=== PATIENT | female | born 1955 | race Caucasian/White ===

== ENCOUNTER 2025-03-29 13:27 | Observation (INO) ==
--- NOTE | 2025-03-29 13:58 | Emergency Department Note ---
Impression & Plan UTI (urinary tract infection) ED Provider Note CHIEF COMPLAINT: Urinary symptoms HISTORY OF PRESENTING ILLNESS: The patient is a pleasant 69-year-old female who arrives to the emergency department with her daughter for evaluation of dysuria. Patient states she is currently being treated for a urinary tract infection that she believes she has had since mid January. She states she was seen at [facility], and provided Augmentin. She reports she was contacted by them today, and informed that she would require further treatment due to the culture results. Patient states some generalized weakness. She reports suprapubic pain, and pressure. She states no upper abdominal pain, nausea, vomiting, fever, chest pain, or shortness of breath. She does report some bilateral lower extremity weakness, that has worsened over the last month. The patient reports she did recently bury her , and that she has struggled dealing with that. REVIEW OF SYSTEMS: See HPI for pertinent positives and pertinent negatives. ALLERGIES: See below MEDICATIONS: See below PAST MEDICAL HISTORY: See below PHYSICAL EXAM: VITALS: Vitals are noted on the nurse's note and reviewed by myself. Vital signs stable. GENERAL: 69-year-old female, in no acute distress, nondiaphoretic, well- developed well-nourished. SKIN: The skin was without rashes, erythema, edema, or bruising. HEAD: Normocephalic atraumatic. EARS: External auditory canals clear, tympanic membranes pearly pineda without erythema or effusion bilaterally. EYES: Pupils equal round and reactive to light and accommodation. Conjunctivae without injection, sclerae without icterus. Extraocular movements intact. MOUTH: Mucous membranes moist. No tonsillar hypertrophy. Pharynx without erythema or exudate. Uvula midline. Airway patent. Tongue does not deviate. NECK: Supple without nuchal rigidity. No lymphadenopathy. Cervical spine is nontender. No JVD. HEART: Regular rate and rhythm without murmurs gallops or rubs. LUNGS: Clear to auscultation bilaterally without wheezes, rales or rhonchi. No retractions or accessory muscle use. ABDOMEN: Positive bowel sounds x 4. Soft, tenderness to palpation suprapubic region, no rebound tenderness or guarding. MUSCULOSKELETAL: No muscle atrophy, erythema, or edema noted. Normal gait. Strength 5/5 throughout. NEURO: Patient was alert and oriented to person place and time. No focal neurological deficits. DIFFERENTIAL DIAGNOSIS: Infection, dehydration, metabolic abnormality, hypo/hyperglycemia, electrolyte disturbance, anemia, hypoxia, cardiac sources, intracerebral event, toxicologic, neurologic, as well as other pathologies. ED COURSE AND MEDICAL DECISION MAKING: HISTORY FROM INDEPENDENT HISTORIAN: Daughter at bedside serving as secondary historian. MEDICATIONS GIVEN: 1 L NSS bolus, 1gm IV ertapenem. MONITOR: Continuous cardiac nurse specialist: Order was placed for continuous cardiac nurse specialist. Patient was placed on the cardiac nurse specialist and continuous pulse ox. Patient was noted to be in Atrial fibrillation at an initial rate of 60 bpm per my interpretation. EKG: EKG was interpreted by myself as atrial fibrillation at a rate of 76 bpm, previous for comparison from August 2022 shows no significant change. INTERPRETATION OF LABS: I interpreted the labs with full lab results as below in the lab section of this note. Pertinent lab results discussed in the MDM section below. INTERPRETATION OF IMAGING: Imaging studies were interpreted by myself and read by radiology as per the imaging section of this note. EXTERNAL RECORDS REVIEWED: Medical records from [facility]. [facility] SUMMARY: The patient is a pleasant, 69-year-old female who arrives to the emergency department for evaluation of the above-stated complaint. Saline lock was established, sepsis workup was obtained. Lab work shows no leukocytosis, no anemia. CMP shows elevated glucose at 145, however otherwise unremarkable. Troponin negative, procalcitonin negative, lactate negative. Magnesium within normal limits. Urinalysis shows trace leukocyte esterase, with 1+ bacteria and 11-20 WBCs. I was able to evaluate the urine culture results from [facility], which showed resistance to all oral antibiotics. There was sensitivity noted to meropenem, and ertapenem. Patient was provided 1 g IV ertapenem, as well as 1 L IV fluids. Patient will be admitted for IV antibiotic treatment, to the [facility] hospitalist group. Please refer to their documentation for further patient workup and care. DIAGNOSIS: UTI, resistant ESBL The patient's case was discussed with Dr. Palencia, who agreed with my evaluation and treatment plan. The chart was completed utilizing [employer] voice recognition software. Grammatical errors, random word insertions, pronoun errors, and incomplete sentences are an occasional consequence of this system due to software limitations, ambient noise, and hardware issues. Any formal questions or concerns about the content, text, or information contained within the body of this dictation should be directly addressed to the provider for clarification. Attending Attestation: I Stephan Palencia MD I have reviewed the advanced practitioner's documentation and agree with the plan of care. I accept the responsibility for the associated risk of managing the patient. I performed a substantive portion of the visit including involvement in all aspects of medical decision making. Past Med/Surg History Problem List (Updated 03/29/25 @ 23:31 by SARAH Gonzalez) UTI (urinary tract infection) (Acute) Chronic pain Complicated UTI (urinary tract infection) Atrial fibrillation HTN (hypertension) Rheumatoid arthritis Medical History Obesity Hypothyroidism Psoriasis HLD (hyperlipidemia) Acute diverticulitis Surgical History History of surgery on right wrist History of surgery on left wrist H/O hernia repair S/P cholecystectomy S/P appendectomy H/O colectomy Family History Other Diabetes Heart disease Social History Smoking Status: Never smoker Hx Alcohol Use: No Hx Substance Use: No Preferred Language: Andorran Communication Ability: Effective Trimmer Loader Required: No Beliefs That Will Affect Care: None Current Living Situation: Alone Current Living Situation Comment: lives at home alone Feels Safe at Home: Yes Safety Concerns: Feels Safe At This Time Assistive Devices: Glasses Allergies Allergies Allergy/AdvReac Type Severity Reaction Status Date / Time Iodinated Contrast Media Allergy Severe Difficulty Verified 03/29/25 15:09 Breathing Home Meds Home Medications Medication Instructions Recorded Confirmed apixaban 5 mg tablet (Eliquis) 5 mg PO BID 06/11/22 03/29/25 glipizide 2.5 mg tablet, extended 2.5 mg PO QAM 06/11/22 03/29/25 release 24 hr levothyroxine 125 mcg tablet 125 mcg PO DAILYBB 06/11/22 03/29/25 (Synthroid) lisinopril 10 mg tablet 10 mg PO QAM 06/11/22 03/29/25 morphine 30 mg tablet,extended 30 mg PO TID PRN Severe Pain 06/11/22 03/29/25 release (Scale Score 7-10) oxycodone 10 mg tablet 10 mg PO Q4 PRN mod pain 06/11/22 03/29/25 simvastatin 20 mg tablet 20 mg PO QAM 06/11/22 03/29/25 trazodone 50 mg tablet 100 mg PO HS PRN Sleep 06/11/22 03/29/25 cholecalciferol (vitamin D3) 1,250 50,000 unit PO WK 03/29/25 03/29/25 mcg (50,000 unit) capsule gabapentin 100 mg capsule 100 mg PO DAILY PRN Pain 03/29/25 03/29/25 gabapentin 100 mg capsule 200 mg PO HS 03/29/25 03/29/25 metoprolol succinate 100 mg 100 mg PO BID 03/29/25 03/29/25 tablet,extended release 24 hr sertraline 50 mg tablet 50 mg PO QAM 03/29/25 03/29/25 Previous Rx's Medication Instructions Recorded ondansetron 4 mg disintegrating 4 mg PO Q8H PRN nausea and 06/11/22 tablet vomiting #30 tabs Results & Data (ED) Vital Signs Vital Signs - 24 hr 03/29/25 13:37 03/29/25 14:24 03/29/25 15:07 Temperature 36.5 C Temperature Source Oral Pulse Rate 65 62 Pulse Rate [Apical] 63 Respiratory Rate 20 22 23 Respiratory Effort / Characteristics Non-Labored Spontaneous Non-Labored Spontaneous Respiratory Depth Normal Normal Respiratory Pattern Regular Blood Pressure 130/95 Blood Pressure [Left Arm] 166/108 H Blood Pressure Mean 106 Blood Pressure Mean [Left Arm] 127 Pulse Oximetry 92 94 94 Oxygen Delivery Method Room Air Room Air Room Air Sepsis Recent Fever Within 48 Hours No Sepsis New/Unexplained Change in Mental Status No Sepsis Action Taken by Nursing No Action Required 03/29/25 15:44 03/29/25 16:20 Temperature Temperature Source Pulse Rate 61 Pulse Rate [Apical] 68 Respiratory Rate 22 Respiratory Effort / Characteristics Spontaneous Respiratory Depth Respiratory Pattern Blood Pressure Blood Pressure [Left Arm] 164/104 H Blood Pressure Mean Blood Pressure Mean [Left Arm] 124 Pulse Oximetry 94 Oxygen Delivery Method Room Air Sepsis Recent Fever Within 48 Hours Sepsis New/Unexplained Change in Mental Status Sepsis Action Taken by Intermediate Medications Current Medication List: was personally reviewed by me Laboratory Data Attestation: I reviewed the patient's lab results. 03/30/25 10:27 03/30/25 10:27 Lab Results 03/29/25 03/29/25 Range/Units 14:07 14:22 WBC Cancelled 9.82 RBC Cancelled 4.59 Hgb Cancelled 13.5 Hct Cancelled 41.2 MCV Cancelled 89.8 MCH Cancelled 29.4 MCHC Cancelled 32.8 RDW Std Deviation Cancelled 42.8 RDW Coeff of Skye Cancelled 13.2 Plt Count Cancelled 348 MPV Cancelled 10.3 Immature Gran % (Auto) Cancelled 0.3 Neut % (Auto) Cancelled 82.3 Lymph % (Auto) Cancelled 12.3 Price % (Auto) Cancelled 3.0 Eos % (Auto) Cancelled 1.7 Baso % (Auto) Cancelled 0.4 Neut # (Auto) Cancelled 8.08 H Lymph # (Auto) Cancelled 1.21 Price # (Auto) Cancelled 0.29 Eos # (Auto) Cancelled 0.17 Baso # (Auto) Cancelled 0.04 Immature Gran # (Auto) Cancelled 0.03 Absolute Nucleated RBC Cancelled Nucleated RBC % (auto) Cancelled Neutrophils % (Manual) Cancelled Band Neutrophils % Cancelled Lymphocytes % (Manual) Cancelled Prolymphocyte % Cancelled Reactive Lymphs % (Man) Cancelled Monocytes % (Manual) Cancelled Eosinophils % (Manual) Cancelled Basophils % (Manual) Cancelled Metamyelocytes % (Man) Cancelled Myelocytes % (Man) Cancelled Promyelocytes % (Man) Cancelled Blast Cells % (Manual) Cancelled Plasma Cell % (Manual) Cancelled Other Cells % Cancelled Nucleated RBC % Cancelled Neutrophils # (Manual) Cancelled Band Neutrophils # Cancelled Total Absolute Neuts Cancelled Lymphocytes # (Manual) Cancelled Prolymphocyte # Cancelled Reactive Lymphs # Cancelled Total Abs Lymphocytes Cancelled Monocytes # (Manual) Cancelled Eosinophils # (Manual) Cancelled Basophils # (Manual) Cancelled Metamyelocytes # (Man) Cancelled Myelocytes # (Manual) Cancelled Promyelocytes # (Man) Cancelled Blast Cells # (Man) Cancelled Plasma Cell # (Manual) Cancelled Other Cells # Cancelled Nucleated RBCs # (Man) Cancelled Hypersegmented Neuts Cancelled Hyposegmented Neuts Cancelled Hypogranular Neuts Cancelled Large Granular Lymphs Cancelled # Lrg Granular Lymphs Cancelled Hairy Cells Cancelled Smudge Cells Cancelled Toxic Granulation Cancelled Toxic Vacuolation Cancelled Dohle Bodies Cancelled Ashkan Rods Cancelled Platelet Estimate Cancelled Hypogranular Platelets Cancelled Giant Platelets Cancelled Platelet Satelliting Cancelled RBC Morphology Cancelled Polychromasia Cancelled Hypochromasia Cancelled Poikilocytosis Cancelled Basophilic Stippling Cancelled Anisocytosis Cancelled Microcytosis Cancelled Macrocytosis Cancelled Spherocytes Cancelled Pappenheimer Bodies Cancelled Sickle Cells Cancelled Target Cells Cancelled Tear Drop Cells Cancelled Ovalocytes Cancelled Stomatocytes Cancelled [place] Bodies Cancelled Echinocytes Cancelled Acanthocytes (Spur) Cancelled Rouleaux Cancelled RBC Agglutinates Cancelled Schistocytes Cancelled Sezary Cell Cancelled Sodium 139 (136-145) mmol/L Potassium 4.2 (3.5-5.1) mmol/L Chloride 100 (98-107) mmol/L Carbon Dioxide 30 (21-32) mmol/L Anion Gap 9 (3-11) BUN 10 (6-23) mg/dl Creatinine 0.86 (0.6-1.2) mg/dl Est Cr Clr Drug Dosing 73.1 ml/min eGFR 74.00 BUN/Creatinine Ratio 11.6 (10-20) Glucose 145 H (70-99(Fasting)) mg/dl Lactate 1.5 (0.4-2.0) mmol/L Calcium 9.2 (8.6-10.3) mg/dl Magnesium 1.9 (1.7-2.4) mg/dl Total Bilirubin 0.7 (0.2-1.0) mg/dl Direct Bilirubin 0.2 (0-0.2) mg/dl AST 9 L (13-39) U/L ALT < 3 L (7-52) U/L Alkaline Phosphatase 58 (34-104) U/L Troponin I High Sens 4.6 (0-14) pg/ml Total Protein 7.3 (6.0-8.3) gm/dl Albumin 3.8 (3.4-5.0) gm/dl Procalcitonin 0.04 (0-0.5) ng/ml Urine Color Yellow Urine Appearance Clear (Clear) Urine pH 8.0 H (4.5-7.5) Ur Specific Clear 1.014 (1.000-1.030) Urine Protein Negative (Negative) Urine Glucose (UA) Negative (Negative) Urine Ketones Negative (Negative) Urine Blood Negative (Negative) Urine Nitrite Negative (Negative) Urine Bilirubin Negative (Negative) Urine Urobilinogen Negative (Negative) Ur Leukocyte Esterase Trace H (Negative) Urine WBC (Auto) 11-20 H (0-5) /hpf Urine RBC (Auto) 0-2 (0-2) /hpf U Hyaline Cast (Auto) 0-2 (0-2) /lpf U Epithel Cells (Auto) 3-5 H (0-2) /hpf Urine Bacteria (Auto) 1+ H (None Seen) Urine Comment Blood Parasites ID Cancelled Administered Medications Acetaminophen (Acetaminophen 325 Mg Tab) 650 mg PO Q4H PRN PRN Reason: Pain or Fever Stop: 04/28/25 18:37 Last Admin: 03/30/25 03:26 Dose: 650 mg Documented By: MED Apixaban (Apixaban 5 Mg Tablet) 5 mg PO BID [facility] Stop: 04/28/25 20:59 Last Admin: 03/30/25 09:00 Dose: 5 mg Documented By: Admin: 03/29/25 21:22 Dose: 5 mg Documented By: MED Gabapentin (Gabapentin 100 Mg Cap) 200 mg PO HS PREM Stop: 04/28/25 20:59 Last Admin: 03/29/25 21:22 Dose: 200 mg Documented By: MED Ertapenem (Invanz 1000mg) 1,000 mg in 10 mls @ 2 mls/min IV Q24H PREM Stop: 04/09/25 09:59 Last Admin: 03/30/25 09:00 Dose: 2 mls/min Documented By: TLReji Insulin Aspart (Insulin Aspart Per Unit Charge) 0 units SC ACHS PREM Stop: 04/28/25 20:59 Last Admin: 03/30/25 17:00 Dose: Not Given Documented By: Admin: 03/30/25 12:00 Dose: Not Given Documented By: Admin: 03/30/25 08:00 Dose: Not Given Documented By: Admin: 03/29/25 21:03 Dose: Not Given Documented By: MED Levothyroxine Sodium (Levothyroxine Sodium 125 Mcg Tablet) 125 mcg PO DAILYBB [facility] Stop: 04/29/25 06:29 Last Admin: 03/30/25 05:50 Dose: 125 mcg Documented By: MED Lisinopril (L[facility]op[facility] 10 Mg Tab) [facility] [place]: 04/29/25 08:59 Last Admin: 03/30/25 09:00 Dose: 10 mg Documented By: TLM Metoprolol Succinate (Metoprolol Succ 50mg Ext Rel Tab) 100 mg PO BID [facility] Stop: 04/28/25 20:59 Last Admin: 03/30/25 09:00 Dose: 100 mg Documented By: Admin: 03/29/25 21:07 Dose: 100 mg Documented By: MED Morphine Sulfate (Morphine Sulfate Cr 15 Mg Tabcr) 30 mg PO TID PRN PRN Reason: Severe Pain (Scale Score 7-10) Stop: 04/12/25 18:52 Last Admin: 03/29/25 21:16 Dose: 30 mg Documented By: MED Ondansetron HCl (Ondansetron Inj 2 Mg/Ml 2 Ml Vial) 4 mg IV Q6H PRN PRN Reason: Nausea Stop: 04/28/25 18:37 Last Admin: 03/30/25 05:14 Dose: 4 mg Documented By: MED Oxycodone HCl (Oxycodone Hcl Ir 5 Mg Tab (Immediate Release)) 10 mg PO Q4 PRN PRN Reason: mod pain Stop: 04/12/25 18:37 Last Admin: 03/30/25 15:47 Dose: 10 mg Documented By: TLM Phenazopyridine HCl (Phenazopyridine Hcl 200 Mg Tab) 200 mg PO TID PRN PRN Reason: Dysuria Stop: 04/28/25 22:58 Last Admin: 03/30/25 03:23 Dose: 200 mg Documented By: MED Sertraline HCl (Sertraline Hcl 50 Mg Tablet) 50 mg PO [facility] Stop: 04/29/25 08:59 Last Admin: 03/30/25 09:00 Dose: 50 mg Documented By: TLM Simvastatin (Simvastatin 20 Mg Tab) 20 mg PO [facility] Stop: 04/29/25 08:59 Last Admin: 03/30/25 09:00 Dose: 20 mg Documented By: TLM Trazodone HCl (Trazodone Hcl 100 Mg Tab) 100 mg PO HS PRN PRN Reason: Sleep Stop: 04/28/25 18:37 Last Admin: 03/29/25 21:23 Dose: 100 mg Documented By: MED Discontinued Medications Sodium Chloride (Nss) 1,000 mls @ 999 mls/hr IV .Q1H1M PREM Stop: 03/29/25 15:00 Last Infusion: 03/29/25 15:30 Dose: Infused Documented By: antony Admin: 03/29/25 14:22 Dose: 999 mls/hr Documented By: antony Ertapenem (Invanz 1000mg) 1,000 mg in 10 mls @ 2 mls/min IV NOW STA Stop: 03/29/25 14:51 Last Admin: 03/29/25 15:11 Dose: 2 mls/min Documented By: antony Oxycodone HCl (Oxycodone Hcl Ir 5 Mg Tab (Immediate Release)) 10 mg PO ONE ONE Stop: 03/29/25 15:45 Last Admin: 03/29/25 16:13 Dose: 10 mg Documented By: VISHAL Imaging Data Attestation: I personally reviewed and interpreted this imaging study as follows: Radiologist's Impression: Chest X-Ray 03/29/25 13:59 SINGLE VIEW CHEST CLINICAL HISTORY: Sepsis FINDINGS: An AP, portable, upright chest radiograph is compared to study dated 08/16/2022. The heart is enlarged. There is pulmonary vascular congestion. Atelectasis is noted in the lung bases. Question trace pleural effusions. No pneumothorax is seen. The skeletal structures are osteopenic. The bony thorax is grossly intact. IMPRESSION: 1. Cardiomegaly with evidence of congestive failure. 2. Question trace pleural effusions. ACT 112: Negative or not required by law. Electronically signed by: Romulo Ma M.D. 03/29/2025 2:54 PM Discharge Plan Visit Data Chief Complaint: Urinary Symptoms Stated Complaint: UTI ED Provider: Stephan Palencia ED Midlevel Provider: Marva Spencer Discharge Problem: UTI (urinary tract infection) Patient Disposition: Admitted As Inpatient Condition: Fair Discharge Instructions Interventions: ED Discharge Assessment Last Done: 03/29/25 18:38
[2025-03-29] MEDS: SODIUM CHLORIDE 0.9% 1,000 ML IV SCH (14:22)
[2025-03-29 14:27] LABS: Appearance Urine Clear (Clear); Bacteria Urine Automated 1+ (None Seen); Cast Urine Automated 0-2 /lpf (0-2); Glucose Urine UA Negative (Negative); RBC Urine Automated 0-2 /hpf (0-2)
[2025-03-29 14:38] LABS: Albumin Level 3.8 gm/dl (3.4-5.0); Anion Gap 9 (3-11); Bilirubin,Total 0.7 mg/dl (0.2-1.0); Calcium 9.2 mg/dl (8.6-10.3); Carbon Dioxide 30 mmol/L (21-32); Chloride 100 mmol/L (98-107); Magnesium 1.9 mg/dl (1.7-2.4); Potassium 4.2 mmol/L (3.5-5.1); Sodium 139 mmol/L (136-145)
[2025-03-29 14:44] LABS: Blood Urea Nitrogen 10 mg/dl (6-23); Creatinine Clr Calc Pharmacy 73.1 ml/min; Glucose 145 mg/dl (70-99(Fasting))
[2025-03-29 14:46] LABS: Alanine Aminotransferase < 3 U/L (7-52); Alkaline Phosphatase 58 U/L (34-104); Total Protein 7.3 gm/dl (6.0-8.3)
--- NOTE | 2025-03-29 14:55 | XRay Report ---
SINGLE VIEW CHEST CLINICAL HISTORY: Sepsis FINDINGS: An AP, portable, upright chest radiograph is compared to study dated 08/16/2022. The heart is enlarged. There is pulmonary vascular congestion. Atelectasis is noted in the lung bases. Question t race pleural effusions. No pneumothorax is seen. The skeletal structures are osteopenic. The bony tho rax is grossly intact. IMPRESSION: 1. Cardiomegaly with evidence of congestive failure. 2. Question trace pleural effusions. ACT 112: Negative or not required by law. Electronically signed by: Romulo Ma M.D. 03/29/2025 2:54 PM
[2025-03-29] MEDS: ERTAPENEM 1000MG 1,000 MG/10 ML SYR IV STA (15:11)
--- NOTE | 2025-03-29 15:19 | History & Physical Report ---
Date of Service March 29, 2025 Assessment & Plan (1) Complicated UTI (urinary tract infection): Plan: Patient is 69 year old female with PMH HTN, atrial fibrillation anticoagulated on Eliquis, RA, psoriasis, prediabetes, chronic pain, GERD, hypothyroidism pre sented to ER with dysuria x 6 weeks and abnormal urine culture outpatient. Denies fevers/chills Outpatient 02/20/2025 urine culture greater than 100,000 Klebsiella pneumoniae ESBL In ER afebrile, vitals stable. No leukocytosis New urine culture obtained in ER In ER given ertapenem Will continue ertapenem ID consult CBC, BMP in am (2) Atrial fibrillation: Plan: Anticoagulated on Eliquis Rate controlled Continue Eliquis, metoprolol succinate (3) HTN (hypertension): Plan: Hypertensive in ER Patient reports a lot of stress with the recent of her and reports stressed about being in hospital. She also having pain (chronic) since she missed her doses today. Monitor BP. Hydralazine prn Continue home lisinopril, metoprolol succinate (4) HLD (hyperlipidemia): Plan: Continue simvastatin (5) Rheumatoid arthritis: (6) Chronic pain: Plan: Not currently on any biologics or steroids Attempting to get set up with rheumatology outpatient Continue home oxycodone, morphine (7) Hypothyroidism: Plan: Continue hypothyroidism DVT Prophylaxis On Eliquis Admit med tele Full Code as per discussion with pt Follows with Dr [place] for routine care Pt was seen and care coordinated with Dr Rm. See addendum I spent a total of 65 minutes reviewing notes, outpatient records, labs, medication, coordinating, documenting and providing care for this patient excluding time spent in the performance of separately billed services and excluding time spent by another provider/QHP. History of Present Illness Chief Complaint: Abnormal urine culture Primary Care Provider: [place] Patient is 69 year old female with PMH HTN, atrial fibrillation anticoagulated on Eliquis, RA, psoriasis, prediabetes, chronic pain, GERD, hypothyroidism presented to ER with c/o abnormal urine culture outpatient. Patient reports 6 weeks ago started with dysuria. Reports saw PCP in February and was treated with Augmentin for UTI. Patient states dysuria seemed to decrease but not completely resolve. Reports was called and told to go to ER for IV antibiotics for ESBL UTI. Reports chronic back pain but denies any flank pain or abdominal pain. Denies fever/chills, diaphoresis, N/V/D/C, TORRES, dizziness, CP, SOB, palpitations, cough, sore throat, rhinorrhea, paresthesias, weakness, extremity edema, rashes, hematuria. Outpatient 02/20/2025 urine culture greater than 100,000 Klebsiella pneumoniae ESBL Discussed with ER provider and ertapenem was started in ER. Allergies Allergy/AdvReac Type Severity Reaction Status Date / Time Iodinated Contrast Media Allergy Severe Difficulty Verified 03/29/25 15:09 Breathing Home Medications Medication Instructions Recorded Confirmed Type apixaban 5 mg tablet (Eliquis) 5 mg PO BID 06/11/22 03/29/25 History glipizide 2.5 mg tablet, extended 2.5 mg PO QAM 06/11/22 03/29/25 History release 24 hr levothyroxine 125 mcg tablet 125 mcg PO DAILYBB 06/11/22 03/29/25 History (Synthroid) lisinopril 10 mg tablet 10 mg PO QAM 06/11/22 03/29/25 History morphine 30 mg tablet,extended 30 mg PO TID PRN Severe Pain 06/11/22 03/29/25 History release (Scale Score 7-10) ondansetron 4 mg disintegrating 4 mg PO Q8H PRN nausea and 06/11/22 03/29/25 Rx tablet vomiting #30 tabs oxycodone 10 mg tablet 10 mg PO Q4 PRN mod pain 06/11/22 03/29/25 History simvastatin 20 mg tablet 20 mg PO QAM 06/11/22 03/29/25 History trazodone 50 mg tablet 100 mg PO HS PRN Sleep 06/11/22 03/29/25 History cholecalciferol (vitamin D3) 1,250 50,000 unit PO WK 03/29/25 03/29/25 History mcg (50,000 unit) capsule gabapentin 100 mg capsule 100 mg PO DAILY PRN Pain 03/29/25 03/29/25 History gabapentin 100 mg capsule 200 mg PO HS 03/29/25 03/29/25 History metoprolol succinate 100 mg 100 mg PO BID 03/29/25 03/29/25 History tablet,extended release 24 hr sertraline 50 mg tablet 50 mg PO QAM 03/29/25 03/29/25 History Past Med/Surg History Problem List Chronic pain Complicated UTI (urinary tract infection) Atrial fibrillation HTN (hypertension) Rheumatoid arthritis Medical History Obesity Hypothyroidism Psoriasis HLD (hyperlipidemia) Acute diverticulitis Surgical History History of surgery on right wrist History of surgery on left wrist H/O hernia repair S/P cholecystectomy S/P appendectomy H/O colectomy Family History (Updated 03/29/25 @ 17:50 by Vandana Marshall PA-C) Other Diabetes Heart disease Social History (Updated 03/29/25 @ 17:50 by Vandana Marshall PA-C) Smoking Status: Never smoker Hx Alcohol Use: No Hx Substance Use: No Preferred Language: Yakut Feels Safe at Home: Yes Review of Systems Review of Systems: All systems reviewed & are unremarkable except as noted in HPI & below Physical Exam Physical Exam: General: no distress, obese female Head: normocephalic, atraumatic Eyes: conjunctiva non-injected, anicteric ENT: normal inspection external ears, nose, mucous membranes moist Neck: supple, trachea midline Lungs: clear, no respiratory distress, no wheezing/rhonchi/rales CV: irregularly irregular, rate 64, legs large bilaterally, no erika pitting edema Abd: normal BS, soft, non-tender Ext: no cyanosis, no calf tenderness; +fingers deformity bilaterally Neuro: A&O x 3, no focal deficits noted, normal affect Skin: warm, dry, +plaques scattered entire body Results & Data Results & Data Vital Signs (Past 12 Hours) Vital Signs Temp Pulse Pulse Resp BP BP Pulse Ox 03/29/25 15:07 63 23 166/108 H 94 03/29/25 14:24 62 22 94 03/29/25 13:37 36.5 C 65 20 130/95 92 O2 Del Method 03/29/25 15:07 Room Air 03/29/25 14:24 Room Air 03/29/25 13:37 Room Air Laboratory Results Short CBC 12/19/25 12/19/25 Range/Units 14:07 14:22 WBC Cancelled 9.82 Hgb Cancelled 13.5 Hct Cancelled 41.2 Plt Count Cancelled 348 BMP 03/29/25 14:07 Sodium 139 Potassium 4.2 Chloride 100 Carbon Dioxide 30 BUN 10 Creatinine 0.86 Glucose 145 H Calcium 9.2 Liver Function 03/29/25 Range/Units 14:07 Total Bilirubin 0.7 (0.2-1.0) mg/dl Direct Bilirubin 0.2 (0-0.2) mg/dl AST 9 L (13-39) U/L ALT < 3 L (7-52) U/L Alkaline Phosphatase 58 (34-104) U/L Albumin 3.8 (3.4-5.0) gm/dl Urine 03/29/25 Range/Units 14:07 Urine Color Yellow Urine Appearance Clear (Clear) Urine pH 8.0 H (4.5-7.5) Ur Specific [place] 1.014 (1.000-1.030) Urine Protein Negative (Negative) Urine Glucose (UA) Negative (Negative) Diagnostic Findings Chest X-Ray 03/29/25 13:59 SINGLE VIEW CHEST CLINICAL HISTORY: Sepsis FINDINGS: An AP, portable, upright chest radiograph is compared to study dated 08/16/2022. The heart is enlarged. There is pulmonary vascular congestion. Atelectasis is noted in the lung bases. Question trace pleural effusions. No pneumothorax is seen. The skeletal structures are osteopenic. The bony thorax is grossly intact. IMPRESSION: 1. Cardiomegaly with evidence of congestive failure. 2. Question trace pleural effusions. ACT 112: Negative or not required by law. Electronically signed by: Romulo Ma M.D. 03/29/2025 2:54 PM ECG Additional Comments: Atrial fibrillation, rate 76, nonspecific T wave changes per my interpretation Supervising Physician Co-Signing Physician Notes Patient seen and examined at bedside. Daughter present. Patient laying comfortably, burning with urination for past few days. On exam, laying comfortably in bed, no suprapubic tenderness. Hemodynamically stable, UA with leukocytes and WBC. Susceptibilities personally reviewed, weber resistant except for ertapenem/meropenem/imipenem and a few intermediate sensitivities. Patient presenting with ESBL Klebsiella without signs or symptoms of toxicity. Continue ertapenem. ID consult, appreciate recs. Anticipate need for IV abx therapies at home given symptomatic, complicated ESBL UTI. I have seen and discussed the case with the collaborating advanced practitioner. I agree with the above H&P. I have reviewed and confirmed the patients medical history, the findings on physical examination, and the patients diagnosis and treatment plan with Niyah Marshall PA-C and agree with the information documented. I spent a total of 20 minutes coordinating, documenting, and providing care for this patient excluding time spent in the performance of separately billed services. All of the aforementioned completed outside of collaborating with the assigned advanced practitioner for a full treatment plan. I have reviewed the advanced practitioner's documentation, and I agree with, and take responsibility for the plan of care
[2025-03-29 16:38] LABS: Hematocrit (blood only) 41.2 % (37.0-47.0); Hemoglobin 13.5 g/dL (12.0-16.0); Immature Granulocytes # (auto) 0.03 K/uL (0.01-0.20); Immature Granulocytes % (auto) 0.3 %; Mean Corpuscular Hemoglobin 29.4 pg (25.0-34.0); Mean Corpuscular Volume 89.8 fL (80.0-100.0); Platelet Count 348 K/uL (130-400); RDW Standard Deviation 42.8 fL (36.4-46.3); Red Blood Count 4.59 M/uL (4.20-5.40); White Blood Count 9.82 K/ul (4.8-10.8)
[2025-03-29] MEDS ORDERED: GLUCOSE 10 TAB/TUBE PO PRN (18:38)
[2025-03-29] MEDS ORDERED: GLUCOSE 40% GEL 15 GM TUBE PO PRN (18:38)
[2025-03-29] MEDS ORDERED: GLUCAGON FOR INJ 1 MG VIAL SQ PRN (18:38)
[2025-03-29] MEDS ORDERED: CARBOHYDRATES FOR HYPOGLYCEMIA PO PRN (18:38)
[2025-03-29] MEDS ORDERED: POLYETHYLENE (MIRALAX) 17 GM PACK PO PRN (18:38)
[2025-03-29] MEDS ORDERED: DEXTROSE 50% 50 ML SYRINGE IV PRN (18:38)
--- NOTE | 2025-03-29 19:10 | Electrocardiogram Report ---
Test Reason : Blood Pressure : */* mmHG Vent. Rate : 76 BPM Atrial Rate : * BPM P-R Int : * ms QRS Dur : 76 ms QT Int : 372 ms P-R-T Axes : * 14 36 degrees QTcB Int : 419 ms Atrial fibrillation Nonspecific T wave abnormality Abnormal ECG When compared with ECG of 16-Aug-2022 17:08, No significant change Confirmed by Tyler Rubio ([id number]) on 03/29/2025 7:09:45 PM Referred By: Confirmed By: Tyler Rubio
[2025-03-29] MEDS: INSULIN ASPART PER UNIT CHARGE SC SCH (21:03)
[2025-03-29] MEDS: METOPROLOL SUCC 50MG EXT REL TAB PO SCH (21:07)
[2025-03-29] MEDS: MoRPHine SULFATE CR 15 MG TABCR PO PRN (21:16)
[2025-03-29] MEDS: APIXABAN 5 MG TABLET PO SCH (21:22)
[2025-03-29] MEDS: GABAPENTIN 100 MG CAP PO SCH (21:22)
[2025-03-30] MEDS: PHENAZOPYRIDINE HCL 200 MG TAB PO PRN (03:23)
[2025-03-30] MEDS: ACETAMINOPHEN 325 MG TAB PO PRN (03:26)
[2025-03-30] MEDS: ONDANSETRON INJ 2 MG/ML 2 ML VIAL IV PRN (05:14)
[2025-03-30] MEDS: LEVOTHYROXINE SODIUM 125 MCG TABLET PO SCH (05:50)
[2025-03-30] MEDS: ERTAPENEM 1000MG 1,000 MG/10 ML SYR IV SCH (09:00)
[2025-03-30] MEDS: SERTRALINE HCL 50 MG TABLET PO SCH (09:00)
[2025-03-30] MEDS: SIMVASTATIN 20 MG TAB PO SCH (09:00)
--- NOTE | 2025-03-30 10:15 | Hospitalist Progress Note ---
Date of Service March 30, 2025 Assessment & Plan (1) Complicated UTI (urinary tract infection): Plan: 69 year old female with PMH HTN, atrial fibrillation anticoagulated on Eliquis, RA, psoriasis, prediabetes, chronic pain, GERD, hypothyroidism presented to ER with dysuria x 6 weeks and abnormal urine culture outpatient. Denies fevers/chills Per H&P, Outpatient 02/20/2025 urine culture greater than 100,000 Klebsiella pneumoniae ESBL In ER afebrile, vitals stable. No leukocytosis Continue IV ertapenem for now Urine culture in lab Discussed with her RN to get records from patient's PCP (including recent urine culture results) (2) Atrial fibrillation: Plan: Anticoagulated on Eliquis Rate controlled Continue Eliquis, metoprolol succinate (3) HTN (hypertension): Plan: Hypertensive in ER BP improved Patient reports a lot of stress with the recent of her Continue home lisinopril, metoprolol succinate (4) HLD (hyperlipidemia): Plan: Continue simvastatin (5) Rheumatoid arthritis: (6) Chronic pain: Plan: Not currently on any biologics or steroids Attempting to get set up with rheumatology outpatient Continue home oxycodone, morphine (7) Hypothyroidism: Plan: Continue hypothyroidism DVT Prophylaxis - On Eliquis Full Code I spent a total of 50 minutes coordinating, documenting and providing care for this patient excluding time spent in performance of separately billed services Admission and Anticipated Discharge Date Admission Date: March 29, 2025 Subjective Patient seen and examined Reports dysuria for over 1 month and was called by her Dr after urine culture to go to the hospital for IV antibiotics Denied hematuria, frequency, abd pain, fevers, chills Has chronic psoriatic rash and RA No other complaints on ROS Physical Exam Constitutional: + well hydrated and + obese; no acute di stress Eyes: PERRL, conjunctivae normal, anicteric sclerae ENMT: external ear and nose normal, oropharynx normal Respiratory: normal respiratory effort, lungs clear to auscultation Cardiovascular: Rate/Rhythm: + irregularly irregular Gastrointestinal (Abdomen): normal bowel sounds, soft, nontender, no hepatosplenomegaly Musculoskeletal: No pedal edema Skin: Psoariatic rash on abd and LE Neurologic: PERRL, EOMI, accommodation nl, no face palsy, no dysarthria Psychiatric: A+Ox3, euthymic affect Results & Data Results & Data Vital Signs (Past 12 Hours) Vital Signs Temp Pulse Pulse Resp BP Pulse Ox O2 Del Method 03/30/25 07:39 36.8 C 61 16 123/89 91 Room Air 03/30/25 06:45 60 03/30/25 03:33 36.4 C L 60 14 141/97 H 94 Room Air 03/30/25 00:30 36.3 C L 62 12 159/98 H 92 Room Air 03/29/25 23:16 89 Laboratory Results Abnormal lab results 03/29/25 03/29/25 03/30/25 Range/Units 14:22 20:16 10:27 RBC 4.07 L (4.20-5.40) M/uL Neut # (Auto) 8.08 H (1.40-6.50) K/uL Carbon Dioxide 34 H (21-32) mmol/L Glucose 107 H (70-99(Fasting)) mg/dl POC Glucose 118 H (70-99) mg/dl 03/30/25 Range/Units 11:49 RBC (4.20-5.40) M/uL Neut # (Auto) (1.40-6.50) K/uL Carbon Dioxide (21-32) mmol/L Glucose (70-99(Fasting)) mg/dl POC Glucose 105 H (70-99) mg/dl
[2025-03-30 10:55] LABS: Hematocrit (blood only) 37.5 % (37.0-47.0); Hemoglobin 12.3 g/dL (12.0-16.0); Mean Corpuscular Hemoglobin 30.2 pg (25.0-34.0); Mean Corpuscular Volume 92.1 fL (80.0-100.0); Platelet Count 299 K/uL (130-400); RDW Standard Deviation 43.8 fL (36.4-46.3); Red Blood Count 4.07 M/uL (4.20-5.40); White Blood Count 8.75 K/ul (4.8-10.8)
[2025-03-30 11:10] LABS: Anion Gap 4.0 (3-11); Blood Urea Nitrogen 12.0 mg/dl (6-23); Calcium 8.8 mg/dl (8.6-10.3); Carbon Dioxide 34.0 mmol/L (21-32); Chloride 101.0 mmol/L (98-107); Creatinine Clr Calc Pharmacy 64.1 ml/min; Glucose 107.0 mg/dl (70-99(Fasting)); Potassium 3.6 mmol/L (3.5-5.1); Sodium 139.0 mmol/L (136-145)
[2025-03-30 11:45] LABS: Hemoglobin A1C 5.6 % (4.5-5.6)
[2025-03-31 07:40] LABS: Hematocrit (blood only) 40.3 % (37.0-47.0); Hemoglobin 12.7 g/dL (12.0-16.0); Mean Corpuscular Hemoglobin 29.5 pg (25.0-34.0); Mean Corpuscular Volume 93.5 fL (80.0-100.0); Platelet Count 314 K/uL (130-400); RDW Standard Deviation 45.0 fL (36.4-46.3); Red Blood Count 4.31 M/uL (4.20-5.40); White Blood Count 8.46 K/ul (4.8-10.8)
[2025-03-31 07:54] LABS: Anion Gap 6.0 (3-11); Blood Urea Nitrogen 14.0 mg/dl (6-23); Calcium 8.8 mg/dl (8.6-10.3); Carbon Dioxide 32.0 mmol/L (21-32); Chloride 103.0 mmol/L (98-107); Creatinine Clr Calc Pharmacy 63.2 ml/min; Glucose 93.0 mg/dl (70-99(Fasting)); Potassium 3.7 mmol/L (3.5-5.1); Sodium 141.0 mmol/L (136-145)
[2025-03-31] MEDS: METOPROLOL SUCC 25MG EXT REL TAB PO SCH (09:05)
--- NOTE | 2025-03-31 10:09 | Hospitalist Progress Note ---
Date of Service March 31, 2025 Assessment & Plan (1) Complicated UTI (urinary tract infection): Plan: 69 year old female with PMH HTN, atrial fibrillation anticoagulated on Eliquis, RA, psoriasis, prediabetes, chronic pain, GERD, hypothyroidism presented to ER with dysuria x 6 weeks and abnormal urine culture outpatient. Denies fevers/chills In ER afebrile, vitals stable. No leukocytosis Continue IV ertapenem Urine culture grew ESBL Klebsiella pneumoniae Will f/u ID recs (2) Atrial fibrillation: Plan: Anticoagulated on Eliquis Bradycardic on tele and on eval this AM AM metoprolol held and dose reduced to 75mg BID with holding parameters. Will monitor (3) HTN (hypertension): Plan: Continue home lisinopril Continue metoprolol as above Hydralazine prn. If BP remains elevated, will increase lisinopril dose (4) HLD (hyperlipidemia): Plan: Continue simvastatin (5) Rheumatoid arthritis: (6) Chronic pain: Plan: Not currently on any biologics or steroids Attempting to get set up with rheumatology outpatient Continue home oxycodone, morphine (7) Hypothyroidism: Plan: Continue hypothyroidism DVT Prophylaxis - On Eliquis Full Code I spent a total of 40 minutes coordinating, documenting and providing care for this patient excluding time spent in performance of separately billed services Admission and Anticipated Discharge Date Admission Date: March 29, 2025 Subjective Patient seen and examined Reports dysuria is improving No other complaints Per RN, was hypoxic on room air overnight and bradycardic while sleeping Patient denied h/o GEORGINA or nocturnal hypoxia Physical Exam Constitutional: + well hydrated and + obese; no acute di stress Eyes: PERRL, conjunctivae normal, anicteric sclerae ENMT: external ear and nose normal, oropharynx normal Respiratory: normal respiratory effort, lungs clear to auscultation Cardiovascular: Rate/Rhythm: + irregularly irregular Bradycardic Gastrointestinal (Abdomen): normal bowel sounds, soft, nontender, no hepatosplenomegaly Musculoskeletal: No pedal edema Neurologic: PERRL, EOMI, accommodation nl, no face palsy, no dysarthria Psychiatric: A+Ox3, euthymic affect Results & Data Results & Data Vital Signs (Past 12 Hours) Vital Signs Temp Pulse Pulse Resp BP Pulse Ox O2 Del Method 03/31/25 07:31 36.4 C L 47 L 18 134/83 90 Room Air 03/31/25 06:45 50 L 03/31/25 03:31 36.3 C L 60 18 123/74 93 Room Air 03/31/25 02:54 51 L 03/30/25 23:41 36.9 C 74 16 154/92 H 91 Room Air Laboratory Results Abnormal lab results 03/30/25 03/30/25 03/31/25 Range/Units 16:54 20:27 07:21 MCHC 31.5 L (32.0-36.0) g/dL POC Glucose 126 H 128 H (70-99) mg/dl 03/31/25 Range/Units 11:37 MCHC (32.0-36.0) g/dL POC Glucose 115 H (70-99) mg/dl
[2025-04-01 06:36] LABS: Hematocrit (blood only) 38.2 % (37.0-47.0); Hemoglobin 12.1 g/dL (12.0-16.0); Mean Corpuscular Hemoglobin 29.7 pg (25.0-34.0); Mean Corpuscular Volume 93.9 fL (80.0-100.0); Platelet Count 340 K/uL (130-400); RDW Standard Deviation 44.9 fL (36.4-46.3); Red Blood Count 4.07 M/uL (4.20-5.40); White Blood Count 9.90 K/ul (4.8-10.8)
[2025-04-01 06:54] LABS: Anion Gap 5.0 (3-11); Blood Urea Nitrogen 16.0 mg/dl (6-23); Calcium 9.0 mg/dl (8.6-10.3); Carbon Dioxide 34.0 mmol/L (21-32); Chloride 103.0 mmol/L (98-107); Creatinine Clr Calc Pharmacy 54.3 ml/min; Glucose 98.0 mg/dl (70-99(Fasting)); Potassium 3.8 mmol/L (3.5-5.1); Sodium 142.0 mmol/L (136-145)
[2025-04-01] MEDS: GABAPENTIN 100 MG CAP PO PRN (07:55)
--- NOTE | 2025-04-01 09:51 | Hospitalist Progress Note ---
Date of Service April 01, 2025 Assessment & Plan (1) Complicated UTI (urinary tract infection): Plan: 69 year old female with PMH HTN, atrial fibrillation anticoagulated on Eliquis, RA, psoriasis, prediabetes, chronic pain, GERD, hypothyroidism presented to ER with dysuria x 6 weeks and abnormal urine culture outpatient. Denies fevers/chills In ER afebrile, vitals stable. No leukocytosis Currently on IV ertapenem Urine culture grew ESBL Klebsiella pneumoniae ID recs noted. If patient still symptomatic tomorrow, will do one dose of PO fosfomycin 3g tomorrow AM prior to dc (2) Atrial fibrillation: Plan: Anticoagulated on Eliquis Was bradycardic on first day of admission and FLASK FITTER metoprolol succinate was reduced from 100mg BID to 75mg BID HR within normal range now Continue reduced dose of metoprolol succinate and monitor (3) Nocturnal hypoxia: Plan: Was noted to have nocturnal hypoxia inpatient Nocturnal pulse oximetry noted spO2 less than 88% for 12mins 58s Patient started on oxygen at bedtime. Will make arrangement for oxygen on discharge Discussed findings with patient. She needs to follow up with PCP to arrange Sleep study outpatient (4) HTN (hypertension): Plan: Continue home lisinopril Continue metoprolol as above Hydralazine prn. (5) HLD (hyperlipidemia): Plan: Continue simvastatin (6) Rheumatoid arthritis: (7) Chronic pain: Plan: Not currently on any biologics or steroids Attempting to get set up with rheumatology outpatient Continue home oxycodone, morphine (8) Hypothyroidism: Plan: Continue hypothyroidism DVT Prophylaxis - On Eliquis Full Code I spent a total of 50 minutes coordinating, documenting and providing care for this patient excluding time spent in performance of separately billed services Admission and Anticipated Discharge Date Admission Date: March 29, 2025 Subjective Patient seen and examined Still reports dysuria today but stated it is improving Denied other complaints on ROS Physical Exam Constitutional: + well hydrated and + obese; no acute di stress Eyes: PERRL, conjunctivae normal, anicteric sclerae ENMT: external ear and nose normal, oropharynx normal Respiratory: normal respiratory effort, lungs clear to auscultation Cardiovascular: Rate/Rhythm: + irregularly irregular Gastrointestinal (Abdomen): normal bowel sounds, soft, nontender, no hepatosplenomegaly Skin: Satellite rash in groin Neurologic: PERRL, EOMI, accommodation nl, no face palsy, no dysarthria Psychiatric: A+Ox3, euthymic affect Results & Data Results & Data Vital Signs (Past 12 Hours) Vital Signs Temp Pulse Pulse Resp BP Pulse Ox Pulse Ox 04/01/25 07:41 36.2 C L 76 18 164/97 H 92 04/01/25 03:33 36.3 C L 69 18 127/82 92 04/01/25 02:43 67 91 04/01/25 00:45 69 89 L 04/01/25 00:12 36.9 C 60 18 121/86 92 03/31/25 22:27 72 96 O2 Del Method O2 Del Method 04/01/25 07:41 Room Air 04/01/25 03:33 Room Air 04/01/25 02:43 Room Air 04/01/25 00:45 Room Air 04/01/25 00:12 Room Air 03/31/25 22:27 Room Air Laboratory Results Abnormal lab results 03/31/25 03/31/25 04/01/25 Range/Units 16:48 20:13 05:54 RBC 4.07 L (4.20-5.40) M/uL MCHC 31.7 L (32.0-36.0) g/dL Carbon Dioxide 34 H (21-32) mmol/L POC Glucose 127 H 143 H (70-99) mg/dl 04/01/25 04/01/25 Range/Units 07:53 12:11 RBC (4.20-5.40) M/uL MCHC (32.0-36.0) g/dL Carbon Dioxide (21-32) mmol/L POC Glucose 112 H 140 H (70-99) mg/dl
--- NOTE | 2025-04-01 15:35 | Infectious Disease Consult ---
Date of Service April 01, 2025 Telehealth Information I performed this visit using a real-time telehealth connection between my location and the patients location ([facility]). After connecting through interactive tele-video, patient was identified by name and date of and/or wristband check.Patient (or authorized healthcare customer operations representative) was informed that this was a telemedicine visit and it was being conducted confidentially over secure lines. My office door was closed and no one else was present in the room with me.Patient (or authorized healthcare customer operations representative) provided consent to proceed with the visit, expressed an understanding of privacy and security of the telemedicine visit, and gave permission to have a hospital customer operations representative in the room in order to assist with the visit and to conduct portions of the visit, as needed. I informed the patient (or authorized healthcare customer operations representative) that I reviewed their record and presented the opportunity for them to ask any questions regarding the visit today. The patient agreed to participate. Assessment & Plan (1) Acute cystitis without hematuria: (2) Infection due to ESBL-producing Klebsiella pneumoniae: Plan At this point, the patient does not meet the criteria for complicated UTI. Therefore, I would recommend treating as simple cystitis with a 3 day course of IV ertapenem. Today, will be the last day. If the patient is still symptomatic, I would consider discharging her on 1 dose of oral fosfomycin 3 g (to be given tomorrow morning). History of Present Illness History of Present Illness 69-year-old woman with past medical history of HTN, rheumatoid arthritis, psoriasis, atrial fibrillation, prediabetes and hypothyroidism who was admitted to [facility] on 03/29 because of dysuria. She had these symptoms for around 6 weeks and received a course of Augmentin around that time without complete resolution of symptoms. On presentation, all of her vitals were within normal limits. Initial blood workup was not impressive and UA showed 11-20 WBCs with 1+ bacteria. Urine culture eventually grew ESBL Klebsiella pneumoniae. Allergies Allergy/AdvReac Type Severity Reaction Status Date / Time Iodinated Contrast Media Allergy Severe Difficulty Verified 03/29/25 15:09 Breathing Home Medications Medication Instructions Recorded Confirmed Type apixaban 5 mg tablet (Eliquis) 5 mg PO BID 06/11/22 03/29/25 History glipizide 2.5 mg tablet, extended 2.5 mg PO QAM 06/11/22 03/29/25 History release 24 hr levothyroxine 125 mcg tablet 125 mcg PO DAILYBB 06/11/22 03/29/25 History (Synthroid) lisinopril 10 mg tablet 10 mg PO QAM 06/11/22 03/29/25 History morphine 30 mg tablet,extended 30 mg PO TID PRN Severe Pain 06/11/22 03/29/25 History release (Scale Score 7-10) ondansetron 4 mg disintegrating 4 mg PO Q8H PRN nausea and 06/11/22 03/29/25 Rx tablet vomiting #30 tabs oxycodone 10 mg tablet 10 mg PO Q4 PRN mod pain 06/11/22 03/29/25 History simvastatin 20 mg tablet 20 mg PO QAM 06/11/22 03/29/25 History trazodone 50 mg tablet 100 mg PO HS PRN Sleep 06/11/22 03/29/25 History cholecalciferol (vitamin D3) 1,250 50,000 unit PO WK 03/29/25 03/29/25 History mcg (50,000 unit) capsule gabapentin 100 mg capsule 100 mg PO DAILY PRN Pain 03/29/25 03/29/25 History gabapentin 100 mg capsule 200 mg PO HS 03/29/25 03/29/25 History metoprolol succinate 100 mg 100 mg PO BID 03/29/25 03/29/25 History tablet,extended release 24 hr sertraline 50 mg tablet 50 mg PO QAM 03/29/25 03/29/25 History Patient History Medical History Obesity Hypothyroidism Psoriasis HLD (hyperlipidemia) Acute diverticulitis Surgical History History of surgery on right wrist History of surgery on left wrist H/O hernia repair S/P cholecystectomy S/P appendectomy H/O colectomy Family History Other Diabetes Heart disease Social History Smoking Status: Never smoker Hx Alcohol Use: No Hx Substance Use: No Preferred Language: Egyptian Communication Ability: Effective Japanese Tutor Required: No Beliefs That Will Affect Care: None Current Living Situation: Alone Current Living Situation Comment: lives at home alone Feels Safe at Home: Yes Safety Concerns: Feels Safe At This Time Assistive Devices: Cane and Walker Review of Systems Negative except for what was mentioned in the H&P. Physical Exam Could not be performed as the visit was conducted via TeleMed. Results & Data Vital Signs (Past 12 Hours) Vital Signs Temp Pulse Pulse Resp BP Pulse Ox O2 Del Method 04/01/25 11:37 36.6 C 60 18 145/80 H 94 Room Air 04/01/25 07:41 36.2 C L 76 18 164/97 H 92 Room Air 04/01/25 07:25 63 04/01/25 07:25 Room Air Laboratory Results 03/29: 2 sets of blood culture negative to date 03/29: Urine culture growing ESBL Klebsiella pneumoniae
[2025-04-01] MEDS: NYSTATIN CR 15 GM TUBE EXT SCH (21:17)
[2025-04-02 04:08] LABS: Hematocrit (blood only) 37.9 % (37.0-47.0); Hemoglobin 12.4 g/dL (12.0-16.0); Mean Corpuscular Hemoglobin 30.3 pg (25.0-34.0); Mean Corpuscular Volume 92.7 fL (80.0-100.0); Platelet Count 318 K/uL (130-400); RDW Standard Deviation 44.2 fL (36.4-46.3); Red Blood Count 4.09 M/uL (4.20-5.40); White Blood Count 10.22 K/ul (4.8-10.8)
[2025-04-02 04:23] LABS: Anion Gap 7.0 (3-11); Calcium 8.7 mg/dl (8.6-10.3); Carbon Dioxide 30.0 mmol/L (21-32); Chloride 104.0 mmol/L (98-107); Potassium 4.0 mmol/L (3.5-5.1); Sodium 141.0 mmol/L (136-145)
[2025-04-02 04:28] LABS: Blood Urea Nitrogen 17.0 mg/dl (6-23); Creatinine Clr Calc Pharmacy 58.3 ml/min; Glucose 109.0 mg/dl (70-99(Fasting))
[2025-04-02] MEDS: FOSFOMYCIN TROMETHAMINE 3 GM PACKET PO ONE (09:20)
--- NOTE | 2025-04-02 09:55 | Discharge Summary ---
Date of Service April 02, 2025 Admission HPI Per Admitting Provider Patient is 69 year old female with PMH HTN, atrial fibrillation anticoagulated on Eliquis, RA, psoriasis, prediabetes, chronic pain, GERD, hypothyroidism presented to ER with c/o abnormal urine culture outpatient. Patient reports 6 weeks ago started with dysuria. Reports saw PCP in February and was treated with Augmentin for UTI. Patient states dysuria seemed to decrease but not completely resolve. Reports was called and told to go to ER for IV antibiotics for ESBL UTI. Reports chronic back pain but denies any flank pain or abdominal pain. Denies fever/chills, diaphoresis, N/V/D/C, TORRES, dizziness, CP, SOB, pa lpitations, cough, sore throat, rhinorrhea, paresthesias, weakness, extremity edema, rashes, hematuria. Outpatient 02/20/2025 urine culture greater than 100,000 Klebsiella pneumoniae ESBL Discussed with ER provider and ertapenem was started in ER. Admission Exam Per Admitting Provider General: no distress, obese female Head: normocephalic, atraumatic Eyes: conjunctiva non-injected, anicteric ENT: normal inspection external ears, nose, mucous membranes moist Neck: supple, trachea midline Lungs: clear, no respiratory distress, no wheezing/rhonchi/rales CV: irregularly irregular, rate 64, legs large bilaterally, no erika pitting edema Abd: normal BS, soft, non-tender Ext: no cyanosis, no calf tenderness; +fingers deformity bilaterally Neuro: A&O x 3, no focal deficits noted, normal affect Skin: warm, dry, +plaques scattered entire body Principal Diagnosis ESBL Urinary tract infection Nocturnal hypoxia Bradycardia Discharge Exam Constitutional + well hydrated and + obese; no acute distress Eyes PERRL, conjunctivae normal, anicteric sclerae ENMT external ear and nose normal, oropharynx normal Respiratory normal respiratory effort, lungs clear to auscultation Cardiovascular Rate/Rhythm: + irregularly irregular Gastrointestinal (Abdomen) normal bowel sounds, soft, nontender, no hepatosplenomegaly Skin Psoariatic rash in LE Neurologic PERRL, EOMI, accommodation nl, no face palsy, no dysarthria Psychiatric A+Ox3, euthymic affect Discharge Data Allergies Allergy/AdvReac Type Severity Reaction Status Date / Time Iodinated Contrast Media Allergy Severe Difficulty Verified 03/29/25 15:09 Breathing Consultations 03/29/25 15:05 ED Decision to Admit Stat 03/29/25 18:20 Consult Infectious Diseases Routine 03/30/25 10:16 HIM [Consult Health Information Management] Routine Hospital Course (1) Complicated UTI (urinary tract infection): 69 year old female with PMH HTN, atrial fibrillation anticoagulated on Eliquis, RA, psoriasis, prediabetes, chronic pain, GERD, hypothyroidism presented to ER with dysuria x 6 weeks and abnormal urine culture outpatient. Denies fevers/chills In ER afebrile, vitals stable. No leukocytosis Was treated with IV ertapenem Urine culture grew ESBL Klebsiella pneumoniae ID evaluated and recommended to stop IV ertapenem since patient has got 3 days of IV ertapenem, to give PO Fosfomycin 3g and discharge. Patient got PO Fosfomycin this AM prior to discharge (2) Atrial fibrillation: Anticoagulated on Eliquis Was bradycardic on first day of admission and TECHNICAL ADVISOR metoprolol succinate was reduced from 100mg BID to 75mg BID HR within normal range (60s) since Continue reduced dose of metoprolol succinate and monitor New dose sent to her pharmacy (3) Nocturnal hypoxia: Was noted to have nocturnal hypoxia inpatient Nocturnal pulse oximetry noted spO2 less than 88% for 12mins 58s Patient started on oxygen at bedtime. Nocturnal oxygen arrangements made Discussed findings with patient and daughter today. She needs to follow up with PCP to arrange Sleep study outpatient (4) HTN (hypertension): Continue home lisinopril Continue metoprolol as above (5) HLD (hyperlipidemia): Continue simvastatin (6) Rheumatoid arthritis: (7) Chronic pain: Not currently on any biologics or steroids PCP to set up follow up with Rheumatology Continue home oxycodone, morphine (8) Hypothyroidism: Continue levothyroidism Total Time Total Time Spent Total Time Spent (In Minutes): 45 Total Time Includes: Examination of the Patient, Discharge Planning, Medication Reconciliation and Communication With Other Providers Discharge Plan Discharge Items Patient Disposition: Home - Self-Care Reason For Visit: ESBL UTI Discharge Diagnosis: ESBL Urinary tract infection Nocturnal hypoxia Bradycardia Condition on Discharge: Good Activity: Resume your previous activity Non-emergency contact: Primary Care Provider Call non-emergency contact if: you have any medication questions and your symptoms worsen Follow-up/Referrals: [facility] [Outside Practitioners] - 04/19/25 9:20 am Diet: Carb Consistent or DM2 and Heart Healthy Addtl Attending Provider Instructions: Mrs Elliott You were hospitalized and managed for the above listed diagnoses. You completed antibiotics inpatient You were also found to have low oxygen levels while sleeping. You are being discharged on oxygen at bedtime at 2L/min. Please ensure follow up with your Family Doctor who will arrange Sleep study. Due to significant low heart rate, your metoprolol succinate was reduced to 75mg twice a day. Please ensure follow up with your Doctors. It was a pleasure taking care of you Pending Studies at Discharge: No Stand-Alone Forms: My [facility], Smoking Cessation Medications and DC Order Prescriptions: New metoprolol succinate 25 mg Tablet Extended Release 24 Hr 75 mg PO BID 30 Days Qty: 180 0RF Continued morphine 30 mg tablet extended release 30 mg PO TID PRN (Reason: Severe Pain (Scale Score 7-10)) simvastatin 20 mg tablet 20 mg PO QAM levothyroxine [Synthroid] 125 mcg tablet 125 mcg PO DAILYBB Rx Instructions: synthroid necessary brand name trazodone 50 mg tablet 100 mg PO HS PRN (Reason: Sleep) glipizide 2.5 mg tablet extended release 24hr 2.5 mg PO QAM lisinopril 10 mg tablet 10 mg PO QAM oxycodone 10 mg tablet 10 mg PO Q4 PRN (Reason: mod pain) Eliquis 5 mg tablet 5 mg PO BID ondansetron 4 mg tablet,disintegrating 4 mg PO Q8H PRN (Reason: nausea and vomiting) Qty: 30 0RF gabapentin 100 mg capsule 200 mg PO HS sertraline 50 mg tablet 50 mg PO QAM cholecalciferol (vitamin D3) 1,250 mcg (50,000 unit) capsule 50,000 unit PO WK Rx Instructions: saturdays gabapentin 100 mg capsule 100 mg PO DAILY PRN (Reason: Pain) Discontinued metoprolol succinate 100 mg tablet extended release 24 hr 100 mg PO BID Discharge Orders: Discharge Order (Routine); Ordered 04/02/25 Ordered By: Tosin Espinosa Admission Data Admit Date/Time: 03/29/25 15:52 Attending Provider: Tosin Espinosa I. Admit Provider: Giorgio Rm Primary Care Provider: Pam Frost Other Providers: Giorgio Rm; Cortez Burroughs; Cheyenne Cheng; Steve Vargas I.; Abundio Menezes II; Beth Bonilla; Ghassan Ospina; Favian Suarez; Nidia Rogers Other Interventions: Discharge Summary Assessment (RN) Last Done: 04/02/25 11:45
== END 2025-04-02 13:55 | disposition home or self-care (01) | DRG 690 ==
LOC: ED 13:27 → INTOOBSV 15:52 → EDINP 18:30 → SUATTDRO 18:30 → 2W 18:38